=== PATIENT | male | born 1955 | race Caucasian/White ===

== ENCOUNTER 2022-11-28 22:04 | Inpatient (IN) | payer OTHER, MEDICAID ==
[~2022-11-28] VITALS: Ht 190.5 cm; Wt 168.7 kg
[2022-11-28 22:34] VITALS: BP_SYST 99; PULSE 84; RESP 19; TEMP 97.7; O2SAT 97
[2022-11-28 23:56] LABS: CALCIUM 8.4 mg/dL (8.4-11.0); CREATININE 2.44 mg/dL (0.55-1.30); POTASSIUM 5.3 mmol/L (3.5-5.1)
[2022-11-28 23:57] LABS: BASOPHILS % (AUTO) 0.5 % (0.0-2.0); EOSINOPHILS # (AUTO) 0.3 K/uL (0.0-0.4); EOSINOPHILS % (AUTO) 3.7 % (0.0-4.0); HEMOGLOBIN 8.6 g/dL (14.0-18.0); LYMPHOCYTES % (AUTO) 14.6 % (20.5-51.5); MEAN CORPUSCULAR HEMOGLOBIN 31 pg (27-31); MEAN CORPUSCULAR HGB CONC 32 % (32-36); MEAN CORPUSCULAR VOLUME 96 fL (79.0-98.0); MONOCYTES # (AUTO) 0.7 K/uL (0.0-1.0); MONOCYTES % (AUTO) 10.6 % (1.7-9.3); NEUTROPHILS # (AUTO) 4.9 K/uL (1.8-7.7); NEUTROPHILS % (AUTO) 70.6 % (40.0-70.0); PLATELET COUNT (AUTO) 244 K/uL (130-430); RED CELL DISTRIBUTION WIDTH 14.7 % (9.0-15.0)
[2022-11-29] LABS: ALBUMIN 2.1 g/dL (3.4-4.8); TOTAL BILIRUBIN 0.2 mg/dL (0.0-1.0); TOTAL PROTEIN, SERUM 6.8 g/dL (6.4-8.3)
[2022-11-29] MEDS ORDERED: NACL 0.9% 1,000 ML IV ONE ×2 (00:15→03:45)
[2022-11-29] MEDS ORDERED: HYDR50TA4 PO (04:02)
[2022-11-29] MEDS ORDERED: LEVO175T7 PO (04:02)
[2022-11-29] MEDS ORDERED: IBUP-1970 PO (04:02)
[2022-11-29] MEDS ORDERED: APIX2.5T PO (04:02)
[2022-11-29] MEDS ORDERED: INSU100I26 SUBCUT (04:02)
[2022-11-29] MEDS ORDERED: LISI40TA13 PO (04:02)
[2022-11-29] MEDS ORDERED: SSNOVOLOG SUBCUT (04:02)
[2022-11-29 05:20] VITALS: BP_SYST 139; PULSE 94; RESP 18; TEMP 97.5
[2022-11-29 08:00] VITALS: BP_SYST 139; PULSE 88; RESP 19; TEMP 97.7; O2SAT 94; O2SAT 95
[2022-11-29 08:55] LABS: BILIRUBIN,URINE NEGATIVE (NEGATIVE); CLARITY/URINE CLOUDY (CLEAR); COLOR,URINE YELLOW (YELLOW); GLUCOSE,URINE NEGATIVE (NEGATIVE); KETONES,URINE NEGATIVE (NEGATIVE); PH,URINE 8.5 (5.0-8.0); PROTEIN URINE 2+ (NEGATIVE)
[2022-11-29 08:56] LABS: BLOOD, URINE TRACE (NEGATIVE); LEUKOCYTE ESTERASE ,URINE 3+ (NEGATIVE); NITRITE, URINE NEGATIVE (NEGATIVE); UROBILINOGEN,URINE 0.2 (0.2-1.0)
[2022-11-29 09:12] LABS: BACTERIA,URINE FEW /HPF (None Seen); WBC,URINE 20-50 /HPF (0-3)
[2022-11-29 09:15] LABS: MUCUS,URINE None Seen /LPF (None Seen)
[2022-11-29 12:00] VITALS: BP_SYST 140; PULSE 89; RESP 19; TEMP 97.6; O2SAT 94
[2022-11-29] MEDS ORDERED: ACETAMINOPHEN 325 MG TABLET PO PRN (12:00)
[2022-11-29] MEDS ORDERED: APIXABAN 2.5 MG TABLET PO ONE (12:00)
[2022-11-29] MEDS ORDERED: INSULIN REGULAR, HUMAN 100 UNITS/ML, 3 ML VIAL (humuLIN R) SUBCUT PRN (12:00)
[2022-11-29] MEDS ORDERED: LEVOTHYROXINE SODIUM 0.075 MG TABLET PO ONE (12:15)
[2022-11-29] MEDS ORDERED: DEXTROSE 50%-WATER 50 ML DISP.SYRIN IVP PRN (12:15)
[2022-11-29] MEDS ORDERED: GLUCOSE (DEXTROSE) ORAL GEL -Adults PO PRN (12:15)
[2022-11-29] MEDS ORDERED: D5W 1,000 ML IV PRN (12:15)
[2022-11-29] MEDS ORDERED: LEVOTHYROXINE SODIUM 0.1 MG TABLET PO ONE (12:15)
[2022-11-29] MEDS: MEROPENEM 500 MG in NS 50 ML IV SCH ×2 (15:46→21:19)
[2022-11-29 16:00] VITALS: BP_SYST 137; PULSE 85; RESP 19; TEMP 97.5; O2SAT 95
[2022-11-29] MEDS: APIXABAN 2.5 MG TABLET PO SCH (21:20)
[2022-11-30] VITALS: BP_SYST 134; PULSE 88; RESP 18; TEMP 98.8; O2SAT 95
[2022-11-30 05:07] LABS: TOTAL IRON BIND. CAPACITY 139 ug/dL (250-450)
[2022-11-30 05:18] LABS: BASOPHILS % (AUTO) 0.4 % (0.0-2.0); EOSINOPHILS # (AUTO) 0.3 K/uL (0.0-0.4); EOSINOPHILS % (AUTO) 3.6 % (0.0-4.0); HEMATOCRIT 28.7 % (36-54); HEMOGLOBIN 9.2 g/dL (14.0-18.0); LYMPHOCYTES % (AUTO) 13.1 % (20.5-51.5); MEAN CORPUSCULAR HEMOGLOBIN 31 pg (27-31); MEAN CORPUSCULAR HGB CONC 32 % (32-36); MEAN CORPUSCULAR VOLUME 96 fL (79.0-98.0); MONOCYTES # (AUTO) 0.7 K/uL (0.0-1.0); MONOCYTES % (AUTO) 9.2 % (1.7-9.3); NEUTROPHILS # (AUTO) 5.4 K/uL (1.8-7.7); NEUTROPHILS % (AUTO) 73.7 % (40.0-70.0); PLATELET COUNT (AUTO) 249 K/uL (130-430); RED CELL DISTRIBUTION WIDTH 14.9 % (9.0-15.0); WHITE BLOOD COUNT (AUTO) 7.4 K/uL (4.8-10.8)
[2022-11-30 05:20] LABS: CALCIUM 8.3 mg/dL (8.4-11.0); CREATININE 1.89 mg/dL (0.55-1.30); FREE T4 (FREE THYROXINE) 0.6 ng/dL (0.6-1.6); POTASSIUM 4.7 mmol/L (3.5-5.1); THYROID STIMULATING HORMONE 2.24 uIu/mL (0.34-4.82)
[2022-11-30] MEDS: MEROPENEM 500 MG in NS 50 ML IV SCH ×2 (05:52→14:31)
[2022-11-30] MEDS: LEVOTHYROXINE SODIUM 0.1 MG TABLET PO SCH (06:13)
[2022-11-30] MEDS ORDERED: LEVOTHYROXINE SODIUM 0.1 MG TABLET PO SCH (07:00)
[2022-11-30] MEDS ORDERED: LEVOTHYROXINE SODIUM 0.075 MG TABLET PO SCH (07:00)
[2022-11-30 08:00] VITALS: BP_SYST 129; PULSE 95; RESP 19; TEMP 98.6; O2SAT 96
[2022-11-30] MEDS: APIXABAN 2.5 MG TABLET PO SCH ×2 (09:00→20:22)
[2022-11-30 12:00] VITALS: BP_SYST 129; PULSE 90; RESP 19; TEMP 98; O2SAT 96
[2022-11-30] MEDS: INSULIN REGULAR, HUMAN 100 UNITS/ML, 3 ML VIAL (humuLIN R) SUBCUT PRN ×2 (12:43→20:20)
[2022-11-30 16:00] VITALS: BP_SYST 149; RESP 19; TEMP 99; O2SAT 99
[2022-12-01] MEDS: MEROPENEM 500 MG in NS 50 ML IV SCH ×4 (00:15→21:53)
[2022-12-01 01:48] VITALS: BP_SYST 155; PULSE 96; RESP 19; TEMP 98.6; O2SAT 96
[2022-12-01] MEDS: LEVOTHYROXINE SODIUM 0.1 MG TABLET PO SCH (06:14)
[2022-12-01 08:00] VITALS: BP_SYST 131; PULSE 90; RESP 18; TEMP 98.4; O2SAT 96
[2022-12-01 08:02] LABS: BASOPHILS # (AUTO) 0.1 K/uL (0.0-0.2); BASOPHILS % (AUTO) 0.8 % (0.0-2.0); EOSINOPHILS # (AUTO) 0.3 K/uL (0.0-0.4); EOSINOPHILS % (AUTO) 4.5 % (0.0-4.0); HEMATOCRIT 29.2 % (36-54); HEMOGLOBIN 9.4 g/dL (14.0-18.0); LYMPHOCYTES # (AUTO) 1.1 K/uL (1.0-5.5); LYMPHOCYTES % (AUTO) 15.8 % (20.5-51.5); MEAN CORPUSCULAR HEMOGLOBIN 31 pg (27-31); MEAN CORPUSCULAR HGB CONC 32 % (32-36); MEAN CORPUSCULAR VOLUME 96 fL (79.0-98.0); MONOCYTES # (AUTO) 0.6 K/uL (0.0-1.0); MONOCYTES % (AUTO) 8.2 % (1.7-9.3); NEUTROPHILS # (AUTO) 4.8 K/uL (1.8-7.7); NEUTROPHILS % (AUTO) 70.7 % (40.0-70.0); PLATELET COUNT (AUTO) 276 K/uL (130-430); RED BLOOD CELL COUNT(AUTO) 3.04 MIL/uL (4.2-6.2); RED CELL DISTRIBUTION WIDTH 14.6 % (9.0-15.0); WHITE BLOOD COUNT (AUTO) 6.8 K/uL (4.8-10.8)
[2022-12-01 08:44] LABS: ALBUMIN 2.2 g/dL (3.4-4.8); CALCIUM 8.5 mg/dL (8.4-11.0); CREATININE 1.87 mg/dL (0.55-1.30); POTASSIUM 4.8 mmol/L (3.5-5.1); TOTAL BILIRUBIN 0.4 mg/dL (0.0-1.0); TOTAL PROTEIN, SERUM 6.9 g/dL (6.4-8.3)
[2022-12-01] MEDS: APIXABAN 2.5 MG TABLET PO SCH ×2 (09:09→22:24)
[2022-12-01 12:00] VITALS: BP_SYST 125; PULSE 89; RESP 16; TEMP 97.7; O2SAT 96
[2022-12-01 16:00] VITALS: BP_SYST 131; PULSE 83; RESP 16; TEMP 98.6; O2SAT 95
[2022-12-01] MEDS: INSULIN REGULAR, HUMAN 100 UNITS/ML, 3 ML VIAL (humuLIN R) SUBCUT PRN (17:33)
[2022-12-01 20:00] VITALS: BP_SYST 134; RESP 18; TEMP 98.5; O2SAT 97
[2022-12-02 02:07] LABS: FOLATE (FOLIC ACID) 6.4 ng/mL (>3.0)
[2022-12-02 05:27] LABS: ALBUMIN 2.2 g/dL (3.4-4.8); CALCIUM 8.6 mg/dL (8.4-11.0); CREATININE 1.77 mg/dL (0.55-1.30); POTASSIUM 4.5 mmol/L (3.5-5.1); TOTAL BILIRUBIN 0.3 mg/dL (0.0-1.0); TOTAL PROTEIN, SERUM 6.9 g/dL (6.4-8.3)
[2022-12-02] MEDS: MEROPENEM 500 MG in NS 50 ML IV SCH ×2 (06:22→13:53)
[2022-12-02] MEDS: LEVOTHYROXINE SODIUM 0.1 MG TABLET PO SCH (06:26)
[2022-12-02] MEDS ORDERED: GLIMEPIRIDE 2 MG TABLET PO SCH (07:00)
[2022-12-02 08:00] VITALS: BP_SYST 146; PULSE 96; RESP 20; TEMP 97.9; O2SAT 95
[2022-12-02] MEDS: APIXABAN 2.5 MG TABLET PO SCH (09:28)
[2022-12-02 12:00] VITALS: BP_SYST 137; PULSE 94; RESP 20; TEMP 97.9; O2SAT 96
[2022-12-02 13:48] VITALS: BP_SYST 132; PULSE 90; RESP 18; TEMP 97.5; O2SAT 95
[2022-12-02 16:00] VITALS: BP_SYST 137; PULSE 92; RESP 20; TEMP 98; O2SAT 96
== END 2022-12-02 16:30 | DRG 640 ==
LOC: SED 22:04 → SMU 11-29 03:36
PROVIDERS: ADMIT Family Medicine; ATTEND Family Medicine
DX: E86.0 Dehydration (principal); N17.0 Acute kidney failure with tubular necrosis; E44.0 Moderate protein-calorie malnutrition; N39.0 Urinary tract infection, site not specified; Z68.42 Body mass index [BMI] 45.0-49.9, adult; I10 Essential (primary) hypertension; E11.9 Type 2 diabetes mellitus without complications; F32.A Depression, unspecified; E03.9 Hypothyroidism, unspecified; D64.9 Anemia, unspecified
CPT/HCPCS: 36415; 71045; 80048; 80053; 81000; 82607; 82728; 82746; 82962; 83037; 83540; 83550; 83690; 83735; 84302; 84439; 84443; 85025; 87081; 87086; 93005; 93306; 96360; 97110-GP; 97116-GP; 97530-GP; 99285; J1815; J2185